=== PATIENT | male | born 1990 | race Caucasian/White ===

== ENCOUNTER 2019-06-07 11:52 | Inpatient (IN) | payer BC ==
[~2019-06-07] VITALS: Ht 132.1 cm; Wt 49.4 kg
[2019-06-07] MEDS ORDERED: IV NORMAL SALINE 1000 ML BAG IV ONE ×2 (12:00→13:15)
[2019-06-07] MEDS ORDERED: ONDANSETRON 4 MG/2 ML VIAL IV ONE (12:00)
--- NOTE | 2019-06-07 12:13 | NUR ---
PT IS IN ROOM #1A. DR MCNAIR EVALUATED THE PT.
[2019-06-07] MEDS ORDERED: MORPHINE SULFATE 2 MG/1 ML DISP.SYRIN IV ONE (12:15)
[2019-06-07 12:21] LABS: BASOPHILS # (AUTO) 0.1 K/uL (0.0-8.0); BASOPHILS % (AUTO) 0.2 % (0.0-2.0); HEMATOCRIT 47.7 % (36.7-47.1); LYMPHOCYTES # (AUTO) 1.1 K/uL (20.0-40.0); MEAN CORPUSCULAR HEMOGLOBIN 31.1 uug (23.8-33.4); MEAN CORPUSCULAR HGB CONC 34 g/dL (32.5-36.3); MEAN CORPUSCULAR VOLUME 92.8 fL (73.0-96.2); MONOCYTES # (AUTO) 1.8 K/uL (2.0-10.0); MONOCYTES % (AUTO) 6.3 % (0.0-11.0); NEUTROPHILS # (AUTO) 24.8 K/uL (1.8-8.9); NEUTROPHILS % (AUTO) 89.5 % (38.5-71.5); PLATELET COUNT (AUTO) 391 K/uL (152-348); RED BLOOD CELL COUNT(AUTO) 5.14 MIL/uL (4.06-5.63); WHITE BLOOD COUNT (AUTO) 27.7 K/uL (3.6-10.2)
[2019-06-07] MEDS ORDERED: MORPHINE SULFATE 2 MG/1 ML DISP.SYRIN ONE (12:27)
[2019-06-07] MEDS ORDERED: ONDANSETRON 4 MG/2 ML VIAL ONE (12:27)
[2019-06-07 12:29] LABS: BILIRUBIN,DIRECT 0.3 mg/dL (0.0-0.2); BILIRUBIN,TOTAL 1.4 mg/dL (0.2-1.0); CREATININE 1.2 mg/dL (0.6-1.3); POTASSIUM 4.8 mmol/L (3.5-5.1); TOTAL PROTEIN, SERUM 9.3 g/dL (6.4-8.2)
[2019-06-07] MEDS ORDERED: LORAZEPAM 2 MG/1 ML VIAL IV ONE ×2 (13:15→14:45)
[2019-06-07] MEDS ORDERED: LORAZEPAM 2 MG/1 ML VIAL ONE ×2 (13:18→14:52)
[2019-06-07] MEDS ORDERED: MAG HYDROX/AL HYDROX/SIMETH 30 ML LIQUID UDC PO ONE (14:15)
[2019-06-07] MEDS ORDERED: LIDOCAINE VISCUS 2% 15 ML UDC MM ONE (14:15)
[2019-06-07] MEDS ORDERED: MAG HYDROX/AL HYDROX/SIMETH 30 ML LIQUID UDC ONE (14:15)
[2019-06-07] MEDS ORDERED: LIDOCAINE VISCUS 2% 15 ML UDC ONE (14:15)
[2019-06-07 14:20] LABS: BASOPHILS % (AUTO) 0.2 % (0.0-2.0); HEMATOCRIT 44.1 % (36.7-47.1); HEMOGLOBIN 14.5 g/dL (12.5-16.3); LYMPHOCYTES # (AUTO) 0.9 K/uL (20.0-40.0); LYMPHOCYTES % (AUTO) 3.7 % (20.5-51.5); MEAN CORPUSCULAR HEMOGLOBIN 30.7 uug (23.8-33.4); MEAN CORPUSCULAR HGB CONC 33 g/dL (32.5-36.3); MEAN CORPUSCULAR VOLUME 93.1 fL (73.0-96.2); MONOCYTES # (AUTO) 2.1 K/uL (2.0-10.0); MONOCYTES % (AUTO) 8.4 % (0.0-11.0); NEUTROPHILS # (AUTO) 21.9 K/uL (1.8-8.9); NEUTROPHILS % (AUTO) 87.7 % (38.5-71.5); PLATELET COUNT (AUTO) 328 K/uL (152-348); RED BLOOD CELL COUNT(AUTO) 4.74 MIL/uL (4.06-5.63)
[2019-06-07 14:26] LABS: POTASSIUM 4.8 mmol/L (3.5-5.1)
[2019-06-07] MEDS ORDERED: ACETAMINOPHEN 325 MG TABLET PO PRN (14:45)
[2019-06-07] MEDS ORDERED: ONDANSETRON 4 MG/2 ML VIAL IV PRN (14:45)
[2019-06-07] MEDS ORDERED: THIAMINE HCL INJ 100 MG in IV DEXTROSE 5% 50 ML IV SCH (14:45)
[2019-06-07] MEDS ORDERED: FOLIC ACID 1 MG in IV DEXTROSE 5% 50 ML IV SCH (14:45)
[2019-06-07] MEDS ORDERED: HYDROCODONE/APAP 5-325MG TABLET PO PRN (14:45)
[2019-06-07] MEDS ORDERED: LORAZEPAM 2 MG/1 ML VIAL IV PRN (14:45)
--- NOTE | 2019-06-07 15:20 | NUR ---
REPORT WAS GIVEN TO DESIGN MAINTENANCE ENGINEER. PT WAS TRANSFERED TO ROOM #316.
--- NOTE | 2019-06-07 15:25 | NUR ---
RECEIVED PATIENT 29 Y/O MALE FROM ER [facility]OUGH [facility] WITH CHIEF COMPLAINT OF CHEST PAIN, SHORTNESS OF BREATH AND NAUSEA/VOMITING. DIAGNOSIS OF: ALCOHOL WITHDRAWAL, DEHYDRATION, TACHYCARDIA. TRANSFERRED TO BED COMFORTABLY. ROUTINE ADMISSION CARE RENDERED. PLACED ON TELE-MONITORING. SINUS TACHYCARDIA ON MONITOR. DR YOUNG MADE AWARE OF NEW ADMISSION WITH NEW ORDERS. IVF OF D5 1/2 NS STARTED ON PERIPHERAL IV ON R AC, 20 G, INFUSING AT 125CC/HR. WILL CONTINUE TO OBSERVE.
[2019-06-07] MEDS: IV D5 1/2 NS 1000 ML 1,000 ML IV PRN (15:54)
--- NOTE | 2019-06-07 18:00 | NUR ---
PATIENT IS SLEEPING AT THIS TIME. APPEARS TO BE RESTING WELL. ALL DUE IV VITAMINS GIVEN, AND TOLERATED WELL. FRIEND/CAREGIVER, ADRIANA, AT BEDSIDE. NO SIGNS OF ACUTE DISTRESS AT THIS TIME.
[2019-06-07 19:39] VITALS: BP 134/68
--- NOTE | 2019-06-07 20:00 | NUR ---
Patient received sleeping in bed, resting comfortably, with family at bedside. Patient has no s/s of acute distress or discomfort at this time. IV site on right AC is patent and intact and D5 IVF is running at 125mL/hr. All safety and fall precaution measures are in place. Call light and personal items are within reach at all times.
[2019-06-07] MEDS: FAMOTIDINE. 20 MG/2 ML VIAL IV SCH (20:41)
--- NOTE | 2019-06-07 22:11 | NUR ---
Recheck of patient's temperature shows a decrease to 98.7F from 99.2.
[2019-06-08 00:03] VITALS: BP 135/72
[2019-06-08] MEDS: IV D5 1/2 NS 1000 ML 1,000 ML IV PRN (01:28)
[2019-06-08 04:00] VITALS: BP 140/62
--- NOTE | 2019-06-08 05:13 | NUR ---
Patient slept throughout night with no complaints of pain or discomfort. IV site remains patent and intact with D5 1/2 NS running at 125mL/hr. All safety and fall precaution measures remain in place. Call light and personal items are within reach at all times.
[2019-06-08 06:37] LABS: BASOPHILS % (AUTO) 0.1 % (0.0-2.0); HEMATOCRIT 36.4 % (36.7-47.1); HEMOGLOBIN 12.9 g/dL (12.5-16.3); LYMPHOCYTES # (AUTO) 0.8 K/uL (20.0-40.0); LYMPHOCYTES % (AUTO) 8.4 % (20.5-51.5); MEAN CORPUSCULAR HEMOGLOBIN 32.2 uug (23.8-33.4); MEAN CORPUSCULAR HGB CONC 36 g/dL (32.5-36.3); MEAN CORPUSCULAR VOLUME 90.8 fL (73.0-96.2); MONOCYTES # (AUTO) 1.1 K/uL (2.0-10.0); MONOCYTES % (AUTO) 11.8 % (0.0-11.0); NEUTROPHILS # (AUTO) 7.2 K/uL (1.8-8.9); NEUTROPHILS % (AUTO) 79.7 % (38.5-71.5); PLATELET COUNT (AUTO) 233 K/uL (152-348); RED BLOOD CELL COUNT(AUTO) 4.01 MIL/uL (4.06-5.63)
[2019-06-08 06:57] LABS: CARBON DIOXIDE 23 mmol/L (21-32); CHLORIDE 102 mmol/L (98-107); CHOLESTEROL 119 mg/dL (<200); CREATININE 0.7 mg/dL (0.6-1.3); GLUCOSE 141 mg/dL (74-106); HDL CHOLESTEROL 41 mg/dL (40-60); MAGNESIUM 2.3 mg/dL (1.8-2.4); PHOSPHOROUS 1.8 mg/dL (2.5-4.9); POTASSIUM 3.4 mmol/L (3.5-5.1); TRIGLYCERIDES 74 MG/DL (30-150); UREA NITROGEN, BLOOD 13 mg/dL (7-18)
[2019-06-08 07:03] LABS: THYROID STIMULATING HORMONE 0.244 mIU/mL (0.358-3.740)
[2019-06-08] MEDS: FAMOTIDINE. 20 MG/2 ML VIAL IV SCH (08:14)
[2019-06-08] MEDS ORDERED: PANTOPRAZOLE SODIUM 40 MG VIAL IV SCH (09:00)
[2019-06-08] MEDS ORDERED: NEUTRA PHOS PACKET PO ONE (11:15)
[2019-06-08] MEDS ORDERED: POTASSIUM CHLORIDE 20 MEQ TAB.PRT.SR PO ONE (11:15)
[2019-06-08 11:42] VITALS: BP 123/66
--- NOTE | 2019-06-08 12:35 | NUR ---
Patient alert and oriented, stable at time of discharge. IV access and ID wristband removed. Discharge instructions given and reviewed with patient at bedside. Patient verbalized understanding. Educational material given, education given at bedside regarding admission diagnosis. Questions and concerns addressed. Belongings accounted for, sent with patient.
== END 2019-06-08 12:45 | disposition home or self-care (01) | DRG 896 ==
LOC: ER 11:52 → TELE3 15:04
DX: F10.129 Alcohol abuse with intoxication, unspecified (principal); N17.0 Acute kidney failure with tubular necrosis; E87.2 Acidosis; R17 Unspecified jaundice; E86.0 Dehydration; Y90.9 Presence of alcohol in blood, level not specified; E34.3 Short stature due to endocrine disorder; F17.210 Nicotine dependence, cigarettes, uncomplicated; E87.6 Hypokalemia; E83.39 Other disorders of phosphorus metabolism; F14.129 Cocaine abuse with intoxication, unspecified; R00.0 Tachycardia, unspecified
CPT/HCPCS: 36415; 70030-TC; 71045; 83690; 83735; 84100; 84443; 85025; 93005; A4663; G0378; J2060; J2270; J2405; J3411; J3490; J7030; J7060

== ENCOUNTER 2019-12-17 15:53 | Emergency (ER) | payer BC ==
[~2019-12-17] VITALS: Ht 132.1 cm; Wt 49.9 kg
--- NOTE | 2019-12-17 16:17 | NUR ---
Pt states he was playing with his dogs and got his face bumped against the wall, no LOC, c/o pain in nose and upper lip, bled at home, no bleeding now, some swelling noted. Gave pt ice pack. Pt denies CP, SOB, dizziness, n/v, no other complaints, no distress noted.
--- NOTE | 2019-12-17 17:39 | NUR ---
Gave pt RX, CT disk & report, and d/c instructions, verbalized understanding.
[2019-12-17 17:58] VITALS: BP 139/78
== END 2019-12-17 17:59 | disposition home or self-care (01) ==
LOC: ER 15:55
DX: S02.2XXA Fracture of nasal bones, initial encounter for closed fracture (principal); W22.01XA Walked into wall, initial encounter; Y93.89 Activity, other specified; Y92.89 Other specified places as the place of occurrence of the external cause; Y99.8 Other external cause status
CPT/HCPCS: 70486; A4663